=== PATIENT | male | born 1960 | race Caucasian/White ===

== ENCOUNTER → 2017-04-06 | Outpatient (CLI) | payer OTHER | LOC: FIMAGING 08:34 | PROVIDERS: ATTEND Orthopaedic Surgery | DX: Z01.818 Encounter for other preprocedural examination (principal); S82.102A Unspecified fracture of upper end of left tibia, initial encounter for closed fracture; M17.12 Unilateral primary osteoarthritis, left knee; I70.202 Unspecified atherosclerosis of native arteries of extremities, left leg ==

== ENCOUNTER 2017-04-10 05:53 | Observation (INO) | payer OTHER ==
--- NOTE | 2017-04-02 08:22 | GHP ---
[f rep st] PREOP HISTORY AND PHYSICAL DATE OF ADMISSION: He will be an a.m. admission for surgery on April 10, 2017. PROBLEM: Left knee severe medial compartment degenerative arthritis. HISTORY OF PRESENT ILLNESS: The patient is a 57-year-old man who injured his knee skiing in August of 2016. He sustained a posterior cruciate ligament disruption. In September, he underwent arthroscopic surgery for some type of meniscal clean up. The knee did not improve. He subsequently has had cortisone injections and Synvisc injections. He is now reporting severe medial compartment pain. His activities are very limited. He has advanced medial compartment degenerative arthritis. He is admitted for a TAWANNA medial compartment partial knee arthroplasty. PAST MEDICAL HISTORY: Excellent general health. No history of heart disease, stents, DVT, hepatitis, or sleep apnea. He has never had a serious previous MRSA infection. CURRENT MEDICATIONS: None. DRUG ALLERGIES: None. METAL ALLERGIES: None. LATEX ALLERGY: None. SOCIAL HISTORY: The patient has a female partner whom he lives with. He does not smoke cigarettes and occasionally drinks alcohol. 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 FAMILY HISTORY: Negative. PHYSICAL EXAMINATION: GENERAL: He is a healthy-appearing man. EYES: Conjunctivae and sclerae are clear. Pupils are round and reactive. MOUTH: Good oral hygiene. No loose teeth. CHEST: Clear. HEART: Regular rhythm. No murmurs. EXTREMITIES. He has mild varus of his left knee. A large effusion is present. He is tender along the medial joint line. Full extension and 110 degrees of flexion. Mild pseudolaxity of his medial collateral ligament. He has a positive posterior drawer test. IMAGING: His films show advanced medial compartment degenerative arthritis. He is bone on bone in the medial compartment. Mild varus is present. IMPRESSION ON ADMISSION: Left knee advanced medial compartment degenerative arthritis and chronic posterior cruciate ligament deficiency. PLAN: He will undergo a left knee medial compartment TAWANNA partial arthroplasty. The surgery has been described to him, including the risks, complications, expectations, and recovery time. He knows that he has posterior cruciate ligament instability and that could shorten the life time of a partial knee arthroplasty. His only other alternative is a full total knee arthroplasty. I have discussed with him the risk of infection. He understands there is a possibility of some residual pain. He also understands that in his lifetime he will probably need to convert this to a total knee arthroplasty. All his questions have been answered, and he consents to surgery. /[id number]/MODL MTDD
[2017-04-10] MEDS ORDERED: POVIDONE-IODINE 20 ML in SODIUM CL IRRIG SOLUTION 500 ML IRR ONE (06:00)
[2017-04-10] MEDS ORDERED: TRANEXAMIC ACID 1,000 MG in NS 100 ML IV ONE (06:00)
[2017-04-10] MEDS ORDERED: ROPIVACAINE 0.2% 80 MG, EPINEPHrine 0.2 MG, KETOROLAC TROMETHAMINE 30 MG in BAG 0 ML IU ONE (06:00)
[2017-04-10] MEDS ORDERED: DEXAMETHASONE 4 MG/ML VIAL IVP ONE (06:05)
[2017-04-10] MEDS ORDERED: ACETAMINOPHEN 325 MG TAB PO ONE (06:05)
[2017-04-10] MEDS ORDERED: ceFAZolin 2 GM/DEXTROSE 100 ML IV ONE (06:05)
[2017-04-10] MEDS ORDERED: FAMOTIDINE 20 MG TAB PO ONE (06:05)
[2017-04-10] MEDS ORDERED: LIDOCAINE 1% 2 ML INJ ID PRN (06:08)
[2017-04-10] MEDS ORDERED: LR 1,000 ML IV ONE (06:08)
[2017-04-10] MEDS ORDERED: fentaNYL 100 MCG/2 ML INJ ONE ×2 (06:38)
[2017-04-10] MEDS ORDERED: PROPOFOL/EMULSION 500 MG/50 ML BOTTLE IV ONE ×3 (06:39→08:58)
[2017-04-10] MEDS ORDERED: VANCOMYCIN 1 GM VIAL ONE (06:41)
[2017-04-10] MEDS ORDERED: ceFAZolin 1 GM/5 ML SYR ONE (06:42)
[2017-04-10] MEDS ORDERED: BUPIVACAINE 0.5% 30 ML SDV ONE (06:51)
[2017-04-10] MEDS ORDERED: LIDO/EPI 2% **for epidural** 20 ML SDV ONE (06:52)
--- NOTE | 2017-04-10 06:53 | PDHPUP ---
History & Physical Update H&P update statement: This history and physical update is based on an assessment of the patient which was completed after admission or registration (within 24 hours), but prior to the surgery/procedure. H&P update: H&P reviewed & patient examined, no change in patient's condition since H&P completed
[2017-04-10] MEDS ORDERED: MIDAZOLAM 2 MG/2 ML VIAL ONE (07:10)
[2017-04-10] MEDS ORDERED: NALOXONE HCL 0.4 MG/ML INJ IVP PRN (07:54)
--- NOTE | 2017-04-10 08:00 | PDANEPAE ---
ANE History of Present Illness 57 y/o male for L knee partial arthroplasty. O/w healthy. No prior anesthetic problems. ANE Past Medical History - Cardiovascular History Hx Hypertension: No Hx Arrhythmias: No Hx Chest Pain: No Hx Coronary Artery / Peripheral Vascular Disease: No Hx CHF / Valvular Disease: No Hx Palpitations: No - Pulmonary History Hx COPD: No Hx Asthma/Reactive Airway Disease: No Hx Recent Upper Respiratory Infection: No Hx Sleep Apnea: No Sleep Apnea Screening Result - Last Documented: Negative - Neurologic History Hx Cerebrovascular Accident: No Hx Seizures: No Hx Dementia: No - Endocrine History Hx Diabetes: No - Renal History Hx Renal Disorders: No - Liver History Hx Hepatic Disorders: No - Neurological & Psychiatric Hx Hx Neurological and Psychiatric Disorders: No - Cancer History Hx Cancer: No - Congenital Disorder History Hx Congenital Disorders: No - GI History Hx Gastrointestinal Disorders: No - Other Health History Other Health History: USING TOPICAL FOOT CREAMS. GOUT - Chronic Pain History Chronic Pain: No - Surgical History Prior Surgeries: FOOT SURGERY MODIFIED DANDY Seymour 1978 WISDOM TEETH ANE Review of Systems - Exercise capacity METS (RN): 5 METS ANE Patient History - Allergies Allergies/Adverse Reactions: shellfish derived Allergy (Verified 06/15/16 11:37) AMARANT Allergy (Uncoded 06/15/16 11:37) Other-Enter Comments CATS Allergy (Uncoded 06/15/16 11:37) - Home Medications Home Medications: Acetaminophen [Tylenol 325mg (*)] 325 mg PO DAILY PRN 03/12/17 [Last Taken 04/05] Ascorbic Acid [Vitamin C 500 mg (*)] 500 mg PO DAILY 03/12/17 [Last Taken ] Herbals/Supplements -Info Only 1 ea PO DAILY 03/12/17 [Last Taken 04/01/17] Ibuprofen [Motrin (*)] 200 mg PO DAILY 03/12/17 [Last Taken 04/01/17] traMADol [Ultram 50 mg (*)] 50 mg PO DAILY PRN 03/12/17 [Last Taken 04/09/17 16: 00] - NPO status NPO Since - Liquids (Date): 04/09/17 NPO Since - Liquids (Time): 20:00 NPO Since - Solids (Date): 04/09/17 NPO Since - Solids (Time): 20:00 - Smoking Hx Smoking Status: Former smoker - Family Anes Hx Family Hx Anesthesia Complications: NONE ANE Labs/Vital Signs - Vital Signs Blood Pressure: 134/83 Heart Rate: 69 Respiratory Rate: 16 O2 Sat (%): 95 Height: 181.61 cm Weight: 108.862 kg ANE Physical Exam - Airway Mallampati Score: Class 2 Mouth exam: normal dental/mouth exam - Pulmonary Pulmonary: no respiratory distress - Cardiovascular Cardiovascular: regular rate and rhythym - ASA Status ASA Status: I ANE Anesthesia Plan Anesthesia Plan: spinal Regional Anesthesia: adductor canal FNB
[2017-04-10] MEDS ORDERED: fentaNYL 100 MCG/2 ML INJ IVP PRN (08:15)
[2017-04-10] MEDS ORDERED: HYDROCODONE/APAP 5/325 TAB PO PRN (08:15)
[2017-04-10] MEDS ORDERED: LR 500 ML IV PRN (08:15)
[2017-04-10] MEDS ORDERED: ONDANSETRON 4 MG/2 ML VIAL IVP PRN ×2 (08:15→10:04)
[2017-04-10] MEDS ORDERED: METOCLOPRAMIDE 10 MG/2 ML VIAL IVP PRN ×2 (08:15→10:04)
[2017-04-10] MEDS ORDERED: PROMETHAZINE HCL 25 MG/ML INJ IVP PRN ×2 (08:15→10:04)
[2017-04-10] MEDS ORDERED: LABETALOL HCL 50 MG/10 ML SYR IVP PRN (08:15)
[2017-04-10] MEDS ORDERED: MEPERIDINE 25 MG/ML SYR IVP PRN (08:15)
[2017-04-10] MEDS ORDERED: HYDROmorphONE/DILAUDID 1 MG/ML SYR IVP PRN (08:15)
--- NOTE | 2017-04-10 09:43 | POSTOPPROG ---
Post Op Note Date of Operation: 04/10/17 Surgeon: Filemon Delgado Protective Signal Installer Helper: Melonie Anesthesiologist: Abi Royal Anesthesia: IV Sedation, Spinal Post-op Diagnosis: Left knee medial compartment degenerative arthritis. Procedure: Left knee medial compartment Tristan hemiarthroplasty. Inf/Abcess present in the surg proc area at time of surgery?: No EBL: 50-100 (Adductor canal block)
[2017-04-10] MEDS ORDERED: diphenhydrAMINE 25 MG CAP PO PRN (10:04)
[2017-04-10] MEDS ORDERED: MAGNESIUM HYDROXIDE 30 ML UDCUP PO PRN (10:04)
[2017-04-10] MEDS ORDERED: oxyCODONE IR 5 MG TAB PO PRN (10:04)
[2017-04-10] MEDS ORDERED: PHARMACY PAIN CONSULT 1 EA MISC PRN (10:04)
[2017-04-10] MEDS ORDERED: DIPHENOXYLATE/ATROPINE LOMOTIL 1 TAB PO PRN (10:04)
[2017-04-10] MEDS ORDERED: BISACODYL 10 MG SUPP PR PRN (10:04)
[2017-04-10] MEDS ORDERED: TEMAZEPAM 15 MG CAP PO PRN (10:04)
[2017-04-10] MEDS ORDERED: LACTULOSE 20 GM/30 ML UDCUP PO PRN (10:04)
[2017-04-10] MEDS ORDERED: CYCLOBENZAPRINE 10 MG TAB PO PRN (10:04)
[2017-04-10] MEDS ORDERED: ONDANSETRON DISINTEGRATING 4 MG TAB PO PRN (10:04)
[2017-04-10] MEDS ORDERED: POLYETHYLENE GLYCOL 3350 17 GM PKT PO PRN (10:04)
[2017-04-10] MEDS ORDERED: PROMETHAZINE HCL 25 MG SUPPR PR PRN (10:04)
[2017-04-10] MEDS ORDERED: traMADol 50 MG TAB PO PRN (10:18)
[2017-04-10] MEDS ORDERED: NS 500 ML IV PRN (10:18)
[2017-04-10] MEDS ORDERED: KETOROLAC 30 MG/1 ML SDV IVP PRN (10:18)
[2017-04-10] MEDS ORDERED: LR 1,000 ML IV SCH (10:30)
--- NOTE | 2017-04-10 11:20 | POSTANESTH ---
Post Anesthetic Evaluation Cardiovascular Status: Normal, Stable Respiratory Status: Normal, Stable Level of Consciousness/Mental Status: Can Participate in Eval Pain Control: Adequate, Prn Tx Ordered Nausea/Vomiting Control: Adequate, Prn Tx Ordered Complications Possibly Related to Anesthesia: None Noted (Adductor Canal block Left side in PACU with ultrasound. + Block with Bupivicaine .5% 15cc and Lidocaine 2% 10 cc. Tolerated well. Sterile technique. 17 guage touhy.Neg aspiration. ARJUN saved .)
[2017-04-10] MEDS ORDERED: ACETAMINOPHEN 325 MG TAB PO SCH (12:00)
[2017-04-10 12:23] VITALS: RESP 14
[2017-04-10 13:55] VITALS: BP 114/67; PULSE 88; TEMP 97.7; O2SAT 93
[2017-04-10] MEDS ORDERED: ceFAZolin 2 GM/DEXTROSE 100 ML IV SCH (14:00)
--- NOTE | 2017-04-10 20:22 | GOP ---
[f rep st] OPERATIVE REPORT DATE OF OPERATION: 04/10/2017 SURGEON: Filemon Delgado MD LAST TRIMMER: Ethan Wilhelm CFA ANESTHESIA: Combination of Marcaine spinal, IV sedation, and adductor canal block. ANESTHESIOLOGIST: Mary Fisher MD PREOPERATIVE DIAGNOSIS: Left knee severe medial compartment degenerative arthritis with varus defor mity. POSTOPERATIVE DIAGNOSIS: Left knee severe medial compartment degenerative arthritis with varus defo rmity. PROCEDURE PERFORMED: Left knee medial compartment Tristan hemiarthroplasty. FINDINGS: DESCRIPTION OF PROCEDURE: The patient was given 2 g of preoperative IV Ancef within 60 minutes of s urgery. He also received IV tranexamic acid at a dose of 10 mg/kg. He was placed on the operating room table and given spinal anesthesia with Marcaine by Dr. Fisher. He was then placed supine and g iven IV sedation. A Garcia catheter was not used. He wore a REJI stocking and SCD on the nonoperativ e leg. His left lower extremity was prepped with ChloraPrep from the upper thigh tourniquet to the tips of the toes. It was draped free using sterile sheets, towels, and Ioban plastic drape. The [facility] time-out was performed to verify the correct surgical site and side and the correct patient identity. The [place] time-out was also performed. The Trippin Inayo leg holding device w as sterilely attached to the operating room table and used throughout the procedure to help position the knee. Two 3 mm partially threaded pins were inserted into the anteromedial cortex of the femur approximate ly 4-5 inches proximal to the superior pole of the patella. The knee was flexed to 90 degrees while these pins were inserted. They were inserted in a bicortical fashion. Two 3 mm partially threaded pins were inserted into the anteromedial cortex of the tibia about 4-5 inches distal to the tibial tubercle. They were also inserted bicortical. The computer sensing arrays were attached to the tib ia and femur. I confirmed that the arrays were visualized by the computer. The leg was exsanguinat ed with elevation and a 6-inch compressive wrap. The tourniquet was inflated to 300 mmHg. I made a 5-inch curved medial parapatellar incision. Subcutaneous tissues were sharply divided and hemostasis was obtained using electrocautery. The capsule and synovium were opened in a medial para patellar fashion. He had a large effusion. Extensive degenerative changes were present in his medi al compartment. The articular surface of his patella was in very good condition. He had some grade 2 articular cartilage damage over about a 2 cm area at the depth of his femoral sulcus. The articu lar surface of the lateral femoral condyle that I could visualize was in very good condition. The m edial capsule and periosteum were elevated off the rim of the medial tibial plateau around to the po steromedial corner. I released enough of the medial collateral ligament to balance the medial side of the knee. He had some damaged bone and osteophyte formation at the very medial edge of his tibia l plateau. This had been visualized on his preoperative films. The medial meniscus was excised. A small portion of the fat pad was excised to improve exposure. The femoral and tibial check points were inserted, checked, and confirmed. I then performed the hip registration. This was followed by registration of the medial and lateral malleoli. The bony thaddeus juan of the femur and tibia in the medial compartment were registered. Joint balancing was checked and captured in multiple degrees of flexion from 10 degrees to 120 degre es. I used a curved osteotome in the medial compartment to properly tension the medial collateral l igament. Implant position and templating were performed. I made a few minor adjustments in the pre operative plan in order to achieve proper balance of the medial collateral ligament throughout the r [place] of motion and to assure proper tracking. I confirmed a size 5 for the femur and size 4 for the tibia. The robotic arm was registered. I first performed the burring on the medial femoral condyle. This was followed by burring of the tibial plateau with the robotic arm control. The cut articular carti dorcas edges were trimmed with a rongeur. [place] holes were placed in the femur and tibia. I excised the posterior horn of his medial meniscus. I also excised the soft damaged bone and osteophytes ar ound the rim of the medial tibial plateau. He had some small osteophytes along the rim of his media l femoral condyle but I left those alone. I did a trial reduction and confirmed that the 5 femur, a size 4 tibial tray, and an 8 mm insert wer e correct. He had good position of his components. Full range of motion. The medial collateral li gament was properly tensioned throughout the range of motion. A 2nd dose of tranexamic acid was given at a dose of 10 mg/kg. The surfaces were prepared for cemen ting. They were carefully cleaned with the pulsating lavage. The CarboJet device was used to blow dry the cancellous surfaces. A single batch of high viscosity methylmethacrylate cement with 1 g of added vancomycin was mixed. While it was still in a doughy condition, I packed the peg holes on th e tibial surface and layered some additional cement on the undersurface of the tray. This was inser reji and tapped securely into place. Excess cement was removed before it hardened. I packed a small amount of cement in the peg holes of the femur and added some additional cement on the back of the femoral component. The component was inserted and tapped securely into place. Excess cement was re moved before it hardened. I re-tried the size 4, 8 mm polyethylene trial insert. Tension was held on the knee while the cement hardened. Excess cement was removed before it hardened. I removed the trial tibial insert and reinspected the posterior compartment and made sure that there was no extru ded cement around the posterior aspect of the femoral and tibial components. The actual size 4 tibi al insert with 8 mm thickness was inserted and locked into place. The tourniquet was deflated and the total tourniquet time was 1 hour and 19 minutes. The tibial and femoral check points were removed. The 2 pins in the femur and the 2 pins in the tibia were remove d. Forty mL of the joint anesthetic cocktail were injected into the capsule, the vastus medialis te ndon and muscle, and the subcutaneous tissues along the skin edges. The vastus medialis portion of the extensor mechanism was repaired with several [id number] #2 FiberWire sutures. The capsule and synovium were closed first with multiple interrupted [id number] 0 PDS sutures, followed by a running #2 barbed Ethicon Stratafix PDO suture. Subcutaneous tissues were closed with a running 0 barbed Ethicon Stratafix Monoderm suture. The skin was closed with a running 3-[address] ratafix Monoderm subcuticular suture. The skin edges were reapproximated and sealed with half-inch Steri-Strips. The puncture wounds were closed with a 4-0 Vicryl subcuticular suture. The wound was covered with Xeroform gauze and flat 4 x 4's and the knee was wrapped with Kerlix and a 6-inch comp ressive wrap. A long-leg REJI stocking was applied followed by the cooling device. He wore a stocki ng and SCD on the opposite leg during the procedure. I used a Tristan Restoris MCK femoral component in a size 5. The tibial tray was a Tristan Restoris MCK i n size 4. The tibial insert was a size 4 with 8 mm thickness. Ethan Wilhelm acted as a exceptional children teacher assistant. His assistance was a medical necessity to safely perform the procedure. /[id number]/MODL
[2017-04-10] MEDS ORDERED: ASPIRIN 325 MG TAB PO SCH (21:00)
[2017-04-10] MEDS ORDERED: FAMOTIDINE 20 MG TAB PO SCH (21:00)
[2017-04-10] MEDS ORDERED: SENNOSIDES/DOCUSATE SODIUM TAB PO SCH (21:00)
[2017-04-11] MEDS ORDERED: FERROUS SULFATE 140 MG TAB.ER PO SCH (09:00)
== END 2017-04-10 16:10 | disposition home or self-care (01) ==
LOC: F3N 05:53
PROVIDERS: ADMIT Orthopaedic Surgery; ATTEND Orthopaedic Surgery
PROC: 8E0YXBZ Computer Assisted Procedure of Lower Extremity (ICD-10-PCS; principal; 2017-04-10 07:15)
PROC: 0SRD0JZ Replacement of Left Knee Joint with Synthetic Substitute, Open Approach (ICD-10-PCS; principal; 2017-04-10 07:15)
DX: M17.12 Unilateral primary osteoarthritis, left knee (principal); M23.52 Chronic instability of knee, left knee; M25.562 Pain in left knee; M25.762 Osteophyte, left knee
CPT/HCPCS: 97110-GP; 97161-GP; 97165-GO; 97535-GO; C1713; J0171; J0690; J1100; J1885; J2250; J2704; J2795; J3010; J3370